=== PATIENT | female | born 1945 | race Caucasian/White ===

== ENCOUNTER 2016-07-26 13:11 | Outpatient (RCR) | payer MEDICARE, OTHER ==
[~2016-07-26 13:11] MED LIST: ALLEGRA 180MG180 MG PO; ALLEGRA 60MG TA60 MG; ALLEGRA 60MG TA60 MG PO; ALLEGRA60 M1 PO; ANORO IH; ARICEPT10 MG PO; ASPI325T6 PO; ASPIRIN 81M81 MG/TA2 PO; B COMPLEX #11 TA1 PO; CARDIZEM CD 12120 MG PO; CELEBREX 200MG200 MG PO; CELEBREX200 MG PO; CPAP; FLEXERIL 1010 MG/TAB PO; FLONASE NASAL S16 GM NAS; FLONASE NASAL S16 GM NS; GLUCOSAMINE & C1 CA2; KLOR-CON 1010 MEQ PO; LIPITOR 80MG80 MG PO; MAGNESIUM CHELA27 MG PO; MULTI VITAMINS1 TAB PO; NAPROSYN500 MG PO; NEURONTIN100 MG PO; NEURONTIN100 MG/CAP; NEURONTIN100 MG/CAP PO; NORCO 325 MG-51 TAB PO; NORVASC 5MG5 MG/TAB; NORVASC 5MG5 MG/TAB PO; OSCAL 500 TAB500 MG; PLAVIX 75MG TAB75 MG PO; PREMARIN0.3 MG PO; PRILOSEC 20MG20 MG PO; PROTONIX20 MG PO; SAVELLA25 MG PO; SYNTHROID0.075 MG PO; SYNTHROID0.075 MG/T; SYNTHROID0.075 MG/T PO; TIAZAC120 MG PO; TOPROL XL 25MG25 MG PO; TYLENOL 325MG325 MG PO; ULTRAM 50MG TAB50 MG PO; VENTOLIN0.09 MG IH; VITAMIN B COMPL1 SGL PO; VITAMIN B COMPL1 T16 PO; VITAMIN C500 MG PO; VITAMIN D 400400 IU PO; VITAMIN D1000 IU
== END 2016-08-09 06:46 | disposition still patient (30) ==
LOC: COL.CR 13:11
DX: Z48.812 Encounter for surgical aftercare following surgery on the circulatory system (principal); I25.2 Old myocardial infarction

== ENCOUNTER → 2016-08-29 | Outpatient (REF) ==
[~2016-08-29] MED LIST changes: +BROVANA15 MCG/2 M IH; +PULMICORT0.5 MG/2 M IH
[2016-08-29 10:52] LABS: THYROID STIMULATING HORMONE 2.26 uIU/mL (0.465-4.680)
== END ==
LOC: ZLAB.WCH 10:08
PROVIDERS: Internal Medicine
DX: Z01.89 Encounter for other specified special examinations (principal)

== ENCOUNTER → 2016-09-21 | Outpatient (REF) | LOC: ZLAB.WCH 10:29 | DX: Z01.89 Encounter for other specified special examinations (principal) ==

== ENCOUNTER → 2016-10-06 | Outpatient (REF) | LOC: ZLAB.WCH 15:53 | DX: Z01.89 Encounter for other specified special examinations (principal) ==

== ENCOUNTER → 2016-11-02 | Outpatient (REF) ==
[2016-11-02 20:16] LABS: TOTAL IRON BINDING CAPACITY 406 ug/dL (265-497)
[2016-11-02 20:38] LABS: FERRITIN 25 ng/mL (11-264)
== END ==
LOC: ZLAB.WCH 18:05
PROVIDERS: Internal Medicine
DX: Z01.89 Encounter for other specified special examinations (principal)

== ENCOUNTER → 2016-11-15 | Outpatient (CLI) | payer MEDICARE, OTHER | LOC: MC.RAD 11:00 | DX: Z12.31 Encounter for screening mammogram for malignant neoplasm of breast (principal) ==

== ENCOUNTER 2016-11-23 06:31 | Day surgery (SDC) | payer MEDICARE, OTHER ==
[~2016-11-23] VITALS: Ht 157.5 cm; Wt 88.9 kg
[2016-11-23] VITALS (680 sets, daily range): BP systolic 98–179; BP diastolic 55–106; PULSE 50–84; TEMP 97.2–98; O2SAT 85–100
[~2016-11-23 06:31] MED LIST changes: -BROVANA15 MCG/2 M IH; -PULMICORT0.5 MG/2 M IH
[2016-11-23 07:12] LABS: HEMATOCRIT 38.7 % (37.0-47.0); HEMOGLOBIN 12.6 g/dl (12.5-16.0); MEAN CELL VOLUME 92 fl (80.0-100.0); MEAN CORPUSCULAR HEMOGLOBIN 30 pg (27.0-31.0); MEAN CORPUSCULAR HGB CONC 33 g/dl (33.0-37.0); MEAN PLATELET VOLUME 9.9 fl (7.4-10.4); PLATELET COUNT 215 K/mm3 (130-400); RED BLOOD COUNT 4.21 M/mm3 (4.10-5.30); REDCELL DISTRIBUTION WIDTH-CV 14.1 % (11.5-14.5); WHITE BLOOD COUNT 6.8 K/mm3 (4.8-10.8)
[2016-11-23 07:17] LABS: INR 1.1 (0.8-3.0); PROTHROMBIN TIME 11.7 SECONDS (9.7-12.8)
[2016-11-23 07:38] LABS: CALCIUM 8.8 mg/dL (8.4-10.2); CREATININE, serum 0.94 mg/dL (0.52-1.25); POTASSIUM 4.4 mmol/L (3.4-5.0)
[2016-11-23] MEDS ORDERED: BROVANA15 MCG/2 M IH (08:21)
[2016-11-23] MEDS ORDERED: PULMICORT0.5 MG/2 M IH (08:22)
[2016-11-23 19:55] LABS: BASO % 0.4 % (0.0-2.0); EOS # 0.1 (0.0-0.7); EOS % 0.9 % (0-4.0); GRAN # 8.5 (1.4-6.5); GRAN % 86.2 % (42.2-75.2); HEMATOCRIT 40.5 % (37.0-47.0); HEMOGLOBIN 13.5 g/dl (12.5-16.0); LYMPH # 0.8 (1.2-3.4); LYMPH % 7.9 % (20.0-51.0); MEAN CELL VOLUME 90 fl (80.0-100.0); MEAN CORPUSCULAR HEMOGLOBIN 30 pg (27.0-31.0); MEAN CORPUSCULAR HGB CONC 33 g/dl (33.0-37.0); MEAN PLATELET VOLUME 9.9 fl (7.4-10.4); MONO # 0.4 (0.1-0.6); MONO % 4.3 % (1.7-9.3); PLATELET COUNT 197 K/mm3 (130-400); RED BLOOD COUNT 4.49 M/mm3 (4.10-5.30); REDCELL DISTRIBUTION WIDTH-CV 13.9 % (11.5-14.5); WHITE BLOOD COUNT 9.8 K/mm3 (4.8-10.8)
[2016-11-23 20:05] LABS: ADJUSTED CALCIUM 8.8 mg/dL (8.4-10.2); BILIRUBIN,TOTAL 0.9 mg/dL (0.0-1.0); CALCIUM 8.8 mg/dL (8.4-10.2); CREATININE, serum 0.8 mg/dL (0.52-1.25); TOTAL PROTEIN 6.9 gm/dL (6.4-8.2)
[2016-11-24] VITALS (394 sets, daily range): BP systolic 106–112; BP diastolic 68–84; PULSE 56–64; TEMP 97.7–98; O2SAT 85–98
[2016-11-24 06:00] LABS: HEMOGLOBIN 12.9 g/dl (12.5-16.0); MEAN CELL VOLUME 91 fl (80.0-100.0); MEAN CORPUSCULAR HEMOGLOBIN 30 pg (27.0-31.0); MEAN CORPUSCULAR HGB CONC 33 g/dl (33.0-37.0); PLATELET COUNT 199 K/mm3 (130-400); RED BLOOD COUNT 4.29 M/mm3 (4.10-5.30); REDCELL DISTRIBUTION WIDTH-CV 13.8 % (11.5-14.5)
[2016-11-24 06:12] LABS: CALCIUM 8.8 mg/dL (8.4-10.2); CREATININE, serum 0.85 mg/dL (0.52-1.25); POTASSIUM 3.9 mmol/L (3.4-5.0)
== END 2016-11-24 12:51 | disposition home or self-care (01) ==
LOC: COL.CAR 06:31 → IMCU 10:05 → COL.CAR 11-24 12:51
PROVIDERS: Internal Medicine Cardiovascular Disease; Internal Medicine Gastroenterology
DX: I25.110 Atherosclerotic heart disease of native coronary artery with unstable angina pectoris (principal); R11.2 Nausea with vomiting, unspecified; I95.9 Hypotension, unspecified; R00.1 Bradycardia, unspecified; I25.2 Old myocardial infarction; K21.9 Gastro-esophageal reflux disease without esophagitis; G30.9 Alzheimer's disease, unspecified; F02.80 Dementia in other diseases classified elsewhere, unspecified severity, without behavioral disturbance, psychotic disturbance, mood disturbance, and anxiety; E78.5 Hyperlipidemia, unspecified; M19.90 Unspecified osteoarthritis, unspecified site; I10 Essential (primary) hypertension; E03.9 Hypothyroidism, unspecified; J45.909 Unspecified asthma, uncomplicated; F32.9 Major depressive disorder, single episode, unspecified; J44.9 Chronic obstructive pulmonary disease, unspecified; G47.33 Obstructive sleep apnea (adult) (pediatric); E66.9 Obesity, unspecified; Z86.73 Personal history of transient ischemic attack (TIA), and cerebral infarction without residual deficits; Z90.710 Acquired absence of both cervix and uterus; Z90.49 Acquired absence of other specified parts of digestive tract; Z87.891 Personal history of nicotine dependence; Z79.1 Long term (current) use of non-steroidal anti-inflammatories (NSAID); Z68.39 Body mass index [BMI] 39.0-39.9, adult
CPT/HCPCS: OP; C1725; C1760; C1769; C1887; C9600; J0461; J1265; J2250; J2405; J2765; J3010

== ENCOUNTER 2017-01-19 11:55 | Outpatient (RCR) | payer MEDICARE, OTHER ==
[~2017-01-19 11:55] MED LIST changes: +BROVANA15 MCG/2 M IH; +PULMICORT0.5 MG/2 M IH
== END 2017-01-24 11:35 | disposition home or self-care (01) ==
LOC: COL.CR 11:55
DX: Z48.812 Encounter for surgical aftercare following surgery on the circulatory system (principal); Z95.5 Presence of coronary angioplasty implant and graft

== ENCOUNTER → 2017-04-20 | Outpatient (REF) ==
[2017-04-20 09:51] LABS: THYROID STIMULATING HORMONE 1.45 uIU/mL (0.465-4.680)
== END ==
LOC: ZLAB.WCH 08:53
PROVIDERS: Internal Medicine
DX: Z01.89 Encounter for other specified special examinations (principal)

== ENCOUNTER → 2017-12-10 | Outpatient (CLI) | payer MEDICARE, OTHER | LOC: MC.RAD 11:32 | DX: Z12.31 Encounter for screening mammogram for malignant neoplasm of breast (principal) ==

== ENCOUNTER 2018-02-28 08:34 | Day surgery (SDC) | payer MEDICARE, OTHER ==
[~2018-02-28] VITALS: Ht 157.6 cm; Wt 98.2 kg
[2018-02-28] MEDS ORDERED: INCRUSE EL62.5 MCG/A IH (09:01)
[2018-02-28] MEDS ORDERED: SINGULAIR 110 MG/TAB PO (09:01)
[2018-02-28] MEDS ORDERED: BROVANA15 MCG/2 M IH (09:02)
[2018-02-28] MEDS ORDERED: FERROUS SULFAT160 M1 PO (09:03)
[2018-02-28 09:14] VITALS: BP 135/70; PULSE 55; TEMP 97.8
[2018-02-28] MEDS ORDERED: CEPHALEXIN500 M1 PO (10:22)
[2018-02-28 11:15] VITALS: BP 150/86; PULSE 85
== END 2018-02-28 11:15 | disposition home or self-care (01) ==
LOC: COL.CAR 08:34
DX: R55 Syncope and collapse (principal); I25.10 Atherosclerotic heart disease of native coronary artery without angina pectoris; I25.2 Old myocardial infarction; I47.1 Supraventricular tachycardia; G47.33 Obstructive sleep apnea (adult) (pediatric); M79.7 Fibromyalgia; E66.9 Obesity, unspecified; J44.9 Chronic obstructive pulmonary disease, unspecified; I10 Essential (primary) hypertension; M19.90 Unspecified osteoarthritis, unspecified site; Z90.710 Acquired absence of both cervix and uterus; Z79.82 Long term (current) use of aspirin; Z79.02 Long term (current) use of antithrombotics/antiplatelets; Z86.73 Personal history of transient ischemic attack (TIA), and cerebral infarction without residual deficits; Z87.891 Personal history of nicotine dependence

== ENCOUNTER → 2018-04-16 | Outpatient (REF) ==
[~2018-04-16] MED LIST changes: +ALBUTEROL0.83 MG/ML IH; +CARDIZEM CD 18180 MG PO; +CEPHALEXIN500 M1 PO; +FERROUSAL325 MG PO; +INCRUSE EL62.5 MCG/A IH; -OSCAL 500 TAB500 MG; +OSCAL 500 TAB500 MG PO; +PROBIOTIC FORMU1 CAP PO; +SINGULAIR 110 MG/TAB PO
[2018-04-16 10:12] LABS: THYROID STIMULATING HORMONE 1.21 uIU/mL (0.465-4.680)
== END ==
LOC: ZLAB.WCH 09:09
PROVIDERS: Internal Medicine
DX: Z01.89 Encounter for other specified special examinations (principal)

== ENCOUNTER → 2018-09-26 | Outpatient (REF) ==
[2018-09-26 17:35] LABS: THYROID STIMULATING HORMONE 0.803 uIU/mL (0.465-4.680)
== END ==
LOC: ZLAB.WCH 16:52
PROVIDERS: Student in an Organized Health Care Education/Training Program
DX: Z01.89 Encounter for other specified special examinations (principal)

== ENCOUNTER → 2018-12-13 | Outpatient (CLI) | payer MEDICARE, OTHER | LOC: MC.RAD 11:40 | DX: Z12.31 Encounter for screening mammogram for malignant neoplasm of breast (principal); N64.89 Other specified disorders of breast; Z95.0 Presence of cardiac pacemaker ==

== ENCOUNTER → 2018-12-17 | Outpatient (CLI) | payer MEDICARE, OTHER | LOC: MC.RAD 09:55 | DX: N63.11 Unspecified lump in the right breast, upper outer quadrant (principal) ==

== ENCOUNTER 2019-01-21 06:48 | Day surgery (SDC) | payer MEDICARE, OTHER ==
[~2019-01-21] VITALS: Ht 157.5 cm; Wt 93.6 kg
[2019-01-21] VITALS (10 sets, daily range): BP systolic 124–151; BP diastolic 62–88; PULSE 59–73; TEMP 97.6–98
--- NOTE | 2019-01-21 09:00 | NUR ---
Complains of dry mouth. May have ice chips per radiology and anesthesia until 1100.
--- NOTE | 2019-01-21 10:00 | NUR ---
Patient resting on cart and is talking with friends. Contact isolation maintained.
[2019-01-21] MEDS ORDERED: PULMICORT0.25 MG/2 IH (10:07)
[2019-01-21] MEDS ORDERED: CELEBREX 1100 MG/CAP PO (10:09)
[2019-01-21] MEDS ORDERED: ALLEGRA 60MG TA60 MG PO (10:14)
[2019-01-21] MEDS ORDERED: GLUCOSAMINE & C1 TAB PO (10:27)
[2019-01-21] MEDS ORDERED: VITAMINC1000TA PO (10:28)
[2019-01-21] MEDS ORDERED: VITAMIN D 400400 IU PO (10:28)
--- NOTE | 2019-01-21 11:08 | NUR ---
Initial visit; Patient thanked Residential Remodeling Subcontractor for offering spiritual care especially prayer and encouragement.
--- NOTE | 2019-01-21 11:13 | NUR ---
Returns to radiology per wheelchair.
--- NOTE | 2019-01-21 12:40 | NUR ---
Patient returns to room 5 per cart from radiology and assisted up to the bathroom. Reports feeling nauseated at times and feeling bowel urgency. IV fluids of LR infusing and IV Pepcid 20mg IV given.
--- NOTE | 2019-01-21 13:30 | NUR ---
Again assisted up to the bathroom and voids and has loose stool. States that she is feeling slightly anxious about surgery.
--- NOTE | 2019-01-21 13:36 | NUR ---
Spencer Morales RATING OFFICER notified re: pt feeling anxious about surgery and Valium 5mg po given with sip of water. Spouse in room.
--- NOTE | 2019-01-21 19:00 | NUR ---
Report given to Bulmaro Redmond LPN. Patient is in bed. She continues to be on the oxymask at 6-10 liters. Patient is drowsy. She is able to answer a few questions appropriatly but than falls back to sleep and is hard to wake up again. She denies pain. She needs a lot of prompting to wake up and answer questions. Denies nausea. Dressing to rigt breast is C/D/I. Patient arrived to the floor at 1840. They brought up the Bi-Pap. No other changes at this time. Call light within reach.
[2019-01-21 19:12] LABS: ARTERIAL BLD GAS O2 SATURATION 91.5 % (92-100); ARTERIAL BLD GAS TCO2 CT 26.5; ARTERIAL BLOOD GAS BASE EXCESS -0.7 (-2-2); ARTERIAL BLOOD GAS HCO3 25.1 meq/L (22-26); ARTERIAL BLOOD GAS PCO2 45.4 mmHg (35-45); ARTERIAL BLOOD GAS PO2 66.7 mmHg (80-100); ARTERIAL BLOOD GAS pH 7.36 (7.35-7.45)
[2019-01-22 04:00] VITALS: BP 106/64; PULSE 82; TEMP 97.6
--- NOTE | 2019-01-22 05:43 | NUR ---
Early in the shift patient was very drowsy, rousable with some effort.Patient was on 6L O2 via oxymask and maintaining SpO2 at or around 94%. Patient slept until approximately 0000, when she woke she was far more alert and oriented, able to maintain SpO2 at or around 96% on 5L via NC. Patient has eaten jello and drank water successfully. Administered PRN tylenol for a headache per patient request. Patient has voided twice, urine is blue/green. Patient denies further needs, call light within reach.
[2019-01-22 08:36] VITALS: BP 148/71; PULSE 80; TEMP 98.3
--- NOTE | 2019-01-22 09:00 | NUR ---
Patient alert and oriented, answers questions appropriately. See assessment. Right breast with incisions well approximated, no redness or drainage noted. New gauze applied to incision sites. No c/o at this time.
--- NOTE | 2019-01-22 10:15 | NUR ---
MADI met with the patient to discuss disharge plan. The patient had a lumpectomy and lymph node sampling done. She states she had to stay overnight, due to her oxygen sats dropping. The patient lives in [place] with her , Brando. She reports independence with ADLs and has a cane, walker, walk-in shower, and nocturnal oxygen and a CPAP from [employer]. The patient's PCP is Dr. Estuardo Kim and she receives her medications through the mail from [facility] and the [facility]. She reports no difficulties obtaining her meds. The patient does not have advanced directives in EMR, but she states that she does have them completed and at home. She states her is her DPOA-HC. The patient plans to return home with her upon discharge. No additional needs at this time.
--- NOTE | 2019-01-22 10:32 | NUR ---
Follow-up visit; Patient thanked Revenue Manager for looking in on her and offerimg encouragement and God's blessings.
--- NOTE | 2019-01-22 11:10 | NUR ---
Discharge instructions reviewed with patient, verbalized understanding. Discharged via wheelchair to auto/home with family at 1110
== END 2019-01-22 11:10 | disposition home or self-care (01) ==
LOC: SDCO 06:48 → SURG 19:18 → SDCO 01-22 11:10
PROVIDERS: Surgery
DX: C50.411 Malignant neoplasm of upper-outer quadrant of right female breast (principal); Z79.899 Other long term (current) drug therapy; J44.9 Chronic obstructive pulmonary disease, unspecified; I25.10 Atherosclerotic heart disease of native coronary artery without angina pectoris; I10 Essential (primary) hypertension; Z86.73 Personal history of transient ischemic attack (TIA), and cerebral infarction without residual deficits; I49.5 Sick sinus syndrome; G30.9 Alzheimer's disease, unspecified; F02.80 Dementia in other diseases classified elsewhere, unspecified severity, without behavioral disturbance, psychotic disturbance, mood disturbance, and anxiety; M79.7 Fibromyalgia; G25.81 Restless legs syndrome; K21.9 Gastro-esophageal reflux disease without esophagitis; E03.9 Hypothyroidism, unspecified; F32.9 Major depressive disorder, single episode, unspecified; G47.33 Obstructive sleep apnea (adult) (pediatric); E88.81 Metabolic syndrome and other insulin resistance; Z86.14 Personal history of Methicillin resistant Staphylococcus aureus infection; E78.00 Pure hypercholesterolemia, unspecified; Z96.651 Presence of right artificial knee joint; D50.9 Iron deficiency anemia, unspecified; M48.00 Spinal stenosis, site unspecified; G62.9 Polyneuropathy, unspecified; Z95.5 Presence of coronary angioplasty implant and graft; Z79.82 Long term (current) use of aspirin; Z90.49 Acquired absence of other specified parts of digestive tract; Z90.710 Acquired absence of both cervix and uterus; Z88.2 Allergy status to sulfonamides; Z88.5 Allergy status to narcotic agent; Z95.0 Presence of cardiac pacemaker; Z87.891 Personal history of nicotine dependence
CPT/HCPCS: OP; A9541; J2250; J2405; J2550; J2704; J3010; J7120; Q9968

== ENCOUNTER → 2019-07-11 | Outpatient (CLI) | payer MEDICARE, OTHER ==
[~2019-07-11] MED LIST changes: +CELEBREX 1100 MG/CAP PO; +GLUCOSAMINE & C1 TAB PO; +PULMICORT0.25 MG/2 IH; +VITAMINC1000TA PO
== END ==
LOC: COL.RAD 12:01
DX: C50.111 Malignant neoplasm of central portion of right female breast (principal)

== ENCOUNTER 2019-08-08 10:00 | Outpatient (RCR) | payer MEDICARE, OTHER | END 2019-10-26 | disposition home or self-care (01) | LOC: MKS.ESL.PT | DX: I89.0 Lymphedema, not elsewhere classified (principal); Z98.890 Other specified postprocedural states; Z92.3 Personal history of irradiation ==

== ENCOUNTER → 2019-12-17 | Outpatient (CLI) | payer MEDICARE, OTHER | LOC: MC.RAD 13:11 | DX: C50.411 Malignant neoplasm of upper-outer quadrant of right female breast (principal); I10 Essential (primary) hypertension; Z98.890 Other specified postprocedural states | CPT/HCPCS: G0279 ==

== ENCOUNTER → 2020-05-24 | Outpatient (CLI) | payer MEDICARE, OTHER | LOC: COL.RAD 05-19 14:00 | DX: M48.061 Spinal stenosis, lumbar region without neurogenic claudication (principal); M43.16 Spondylolisthesis, lumbar region; M41.86 Other forms of scoliosis, lumbar region; M54.16 Radiculopathy, lumbar region; Z98.1 Arthrodesis status | CPT/HCPCS: A9585 ==

== ENCOUNTER → 2020-06-09 | Outpatient (CLI) | payer MEDICARE, OTHER | LOC: MHCPAIN 10:45 | DX: M47.817 Spondylosis without myelopathy or radiculopathy, lumbosacral region (principal); M54.5 Low back pain; M96.1 Postlaminectomy syndrome, not elsewhere classified; M53.3 Sacrococcygeal disorders, not elsewhere classified | CPT/HCPCS: G0463 ==

== ENCOUNTER → 2020-06-14 | Outpatient (CLI) | payer MEDICARE, OTHER | LOC: MHCPAIN 12:36 | DX: M47.818 Spondylosis without myelopathy or radiculopathy, sacral and sacrococcygeal region (principal); M53.3 Sacrococcygeal disorders, not elsewhere classified | CPT/HCPCS: G0260; J1040; Q9967 ==

== ENCOUNTER → 2020-07-21 | Outpatient (CLI) | payer MEDICARE, OTHER | LOC: MHCPAIN 13:17 | DX: M47.817 Spondylosis without myelopathy or radiculopathy, lumbosacral region (principal); M96.1 Postlaminectomy syndrome, not elsewhere classified; M53.3 Sacrococcygeal disorders, not elsewhere classified; G89.29 Other chronic pain | CPT/HCPCS: G0463 ==

== ENCOUNTER → 2020-07-26 | Outpatient (CLI) | payer MEDICARE, OTHER | LOC: MHCPAIN 07-14 13:48 | DX: E11.9 Type 2 diabetes mellitus without complications (principal) ==

== ENCOUNTER → 2020-07-26 | Outpatient (CLI) | payer MEDICARE, OTHER | LOC: MC.RAD 08:39 | DX: N64.59 Other signs and symptoms in breast (principal); M47.817 Spondylosis without myelopathy or radiculopathy, lumbosacral region; M54.5 Low back pain ==

== ENCOUNTER → 2020-08-03 | Outpatient (CLI) | payer MEDICARE, OTHER | LOC: MHCPAIN 13:16 | DX: M47.817 Spondylosis without myelopathy or radiculopathy, lumbosacral region (principal); M53.3 Sacrococcygeal disorders, not elsewhere classified; M54.16 Radiculopathy, lumbar region; G89.29 Other chronic pain; M96.1 Postlaminectomy syndrome, not elsewhere classified | CPT/HCPCS: G0463 ==

== ENCOUNTER 2020-11-03 11:00 | Outpatient (RCR) | payer MEDICARE, OTHER | END 2020-11-09 | disposition still patient (30) | LOC: WSC | DX: M96.1 Postlaminectomy syndrome, not elsewhere classified (principal); M48.061 Spinal stenosis, lumbar region without neurogenic claudication; M43.16 Spondylolisthesis, lumbar region ==

== ENCOUNTER → 2020-11-15 | Outpatient (CLI) | payer MEDICARE, OTHER | LOC: MHCPAIN 12:39 | DX: M47.817 Spondylosis without myelopathy or radiculopathy, lumbosacral region (principal); M54.16 Radiculopathy, lumbar region; M53.3 Sacrococcygeal disorders, not elsewhere classified; G89.29 Other chronic pain | CPT/HCPCS: G0463; J1100; Q9967 ==

== ENCOUNTER → 2020-12-01 | Outpatient (CLI) | payer MEDICARE, OTHER | LOC: MHCPAIN 10:39 | DX: M47.817 Spondylosis without myelopathy or radiculopathy, lumbosacral region (principal); M41.86 Other forms of scoliosis, lumbar region; M96.1 Postlaminectomy syndrome, not elsewhere classified; G89.29 Other chronic pain | CPT/HCPCS: G0463 ==

== ENCOUNTER → 2020-12-16 | Outpatient (CLI) | payer MEDICARE, OTHER | LOC: MHCPAIN 11:13 | DX: M47.817 Spondylosis without myelopathy or radiculopathy, lumbosacral region (principal); M54.16 Radiculopathy, lumbar region | CPT/HCPCS: J1100; Q9967 ==

== ENCOUNTER → 2020-12-17 | Outpatient (CLI) | payer MEDICARE, OTHER | LOC: WSC 10-05 11:30 → MC.RAD 10:30 | DX: Z12.31 Encounter for screening mammogram for malignant neoplasm of breast (principal); Z90.11 Acquired absence of right breast and nipple; C50.111 Malignant neoplasm of central portion of right female breast; Z97.8 Presence of other specified devices ==

== ENCOUNTER → 2021-01-11 | Outpatient (CLI) | payer MEDICARE, OTHER | LOC: MHCPAIN 11:08 | DX: M47.816 Spondylosis without myelopathy or radiculopathy, lumbar region (principal); M41.26 Other idiopathic scoliosis, lumbar region; M96.1 Postlaminectomy syndrome, not elsewhere classified; M54.5 Low back pain | CPT/HCPCS: G0463 ==

== ENCOUNTER → 2021-04-06 | Outpatient (CLI) | payer MEDICARE, OTHER | LOC: MHCPAIN 12:23 | DX: M43.16 Spondylolisthesis, lumbar region (principal); M53.3 Sacrococcygeal disorders, not elsewhere classified; M96.1 Postlaminectomy syndrome, not elsewhere classified; M47.817 Spondylosis without myelopathy or radiculopathy, lumbosacral region | CPT/HCPCS: G0463 ==

== ENCOUNTER → 2021-04-18 | Outpatient (CLI) | payer MEDICARE, OTHER | LOC: MHCPAIN 12:11 | DX: M47.817 Spondylosis without myelopathy or radiculopathy, lumbosacral region (principal); M41.26 Other idiopathic scoliosis, lumbar region; M53.3 Sacrococcygeal disorders, not elsewhere classified | CPT/HCPCS: G0260; J1040; Q9967 ==

== ENCOUNTER → 2021-12-19 | Outpatient (CLI) | payer MEDICARE, OTHER | LOC: MC.RAD 10:50 | DX: Z12.31 Encounter for screening mammogram for malignant neoplasm of breast (principal); Z85.3 Personal history of malignant neoplasm of breast ==

== ENCOUNTER → 2023-08-27 | Outpatient (CLI) | payer MEDICARE, OTHER | LOC: COL.RAD 11:03 | DX: M47.812 Spondylosis without myelopathy or radiculopathy, cervical region (principal); M48.02 Spinal stenosis, cervical region ==

== ENCOUNTER 2023-10-31 10:25 | Day surgery (SDC) | payer MEDICARE, OTHER ==
[2023-10-31] VITALS (15 sets, daily range): BP systolic 133–183; BP diastolic 66–100; PULSE 61–99; TEMP 97.6–98.2
[~2023-10-31] VITALS: Ht 157.5 cm; Wt 82.7 kg
[~2023-10-31 10:25] MED LIST changes: +HYDROmorphone 1 MG/1 ML SYRINGE [PACU/SDC ONLY] IV PRN; +LR 1,000 ML IV SCH; +Ondansetron 4 MG/2 ML VIAL IV PRN; +droPERidol 2.5 MG/ML 2 ML VIAL IV PRN; +hydrALAZINE 20 MG/ML 1 ML VIAL IV PRN
[2023-10-31] MEDS ORDERED: fentaNYL 50 MCG/ML 2 ML VIAL ONE (11:17)
[2023-10-31] MEDS ORDERED: Ondansetron 4 MG/2 ML VIAL ONE (11:18)
[2023-10-31] MEDS ORDERED: dexAMETHasone 10 MG/ML VIAL ONE (11:18)
[2023-10-31] MEDS ORDERED: Lidocaine PF 2% (20 MG/ML) 5 ML VIAL ONE (11:18)
[2023-10-31] MEDS ORDERED: NS 10 ML IV ONE ×2 (11:18→16:22)
[2023-10-31] MEDS ORDERED: NS 1,000 ML IV SCH ×2 (13:15→18:00)
[2023-10-31] MEDS ORDERED: Ondansetron 4 MG/2 ML VIAL IV PRN (13:15)
[2023-10-31] MEDS ORDERED: Morphine 4 MG/ML VIAL IV PRN (13:15)
[2023-10-31] MEDS ORDERED: Topical Skin Adhesive 1 EACH (1 ML) TOP ONE (13:19)
--- NOTE | 2023-10-31 14:40 | NUR ---
The patient arrived back to [place] [facility] from the recovery room at this time. The patient reports feeling nauseated and vomited a small amount of bile colored emesis. The patient's cj wrap dressing to her left upper extremity appears clean dry and intact. The patient has a simple sling and ice in place to her left upper extremity. Post operative vital signs were started at this time. The patient's is at her bedside at this time. The patient agrees to try some saltine crackers and sprite. Call light is within reach. Denies any further needs at this time.
--- NOTE | 2023-10-31 14:55 | NUR ---
The patient appears to be tolerating the sprite well but has only taken a couple bites of the crackers. Vital signs appear stable. Call light remains within reach.
--- NOTE | 2023-10-31 15:25 | NUR ---
The patient continues to appear drowsy and reports feeling nauseated. remains at her bedside.
--- NOTE | 2023-10-31 15:51 | NUR ---
Vital signs were not able to be obtained as the patient was up in the restroom. The patient voided without difficulty. She ambulated to the bathroom with the stand by assistance of two nurses and appeared to tolerate the activity well with a slow steady gait.
--- NOTE | 2023-10-31 16:10 | NUR ---
JARROD Farooq was notified of the patient's constant nausea with bile colored emesis and her drowsy state. He verbalized understanding and an order for a scopalamine patch was obtained at this time.
[2023-10-31] MEDS ORDERED: Scopolamine 1 MG Delivered 3-Day PATCH TD ONE (16:15)
[2023-10-31] MEDS ORDERED: Naloxone 0.4 MG/ML VIAL ONE (16:22)
--- NOTE | 2023-10-31 16:25 | NUR ---
The scopalamine patch was placed behind the patient's left ear at this time. The patient was also given 50 mcg of Narcan administered by JARROD Farooq.
--- NOTE | 2023-10-31 16:40 | NUR ---
JARROD Farooq is back at the patient's bedside to assess her and administered an additional 150 mcg of Narcan for a total dose of 200 mcg. The patient's remains at her bedside at this time. The patient has ambulated to the bathroom again with the assistance of two nurses. The patient's voices concern regarding him being able to get the patient from the car into the house and providing care for her while she is so nauseated and drowsy. Dr. Orr has been called to update him on the patient's condition. He verbalized understanding and wants to be updated to see if the Narcan helped the patient.
--- NOTE | 2023-10-31 17:14 | NUR ---
The patient appears slightly less drowsy and was able to take a couple bites of applesauce without any heaving. Vital signs appear stable to her pre op vitals.
--- NOTE | 2023-10-31 17:35 | NUR ---
1735 The patient had another episode of nausea with a moderate amount of bile colored emesis. She still states that she feels "very tired" and "nauseated". [address] Orr to update him on the patient's progress and an order for the patient to stay overnight was obtained. 1742 Scooter [employer] Dean was called to inform her that the patient needs to stay overnight and obtain a room number so report can be called. 1752 Scooter [employer] Dean called back to let the nurse know the patient can be transferred to room 346.
--- NOTE | 2023-10-31 18:31 | NUR ---
1803 The nurse attempted to call report on the patient. The receiving nurse is unavailable and a callback number was left. 1810 Report was given to LIANA Ferreira who will be assuming the care of the patient. He verbalized understanding and questions were answered at this time. 1825 The patient was transferred to room 346 at this time. The patient was assisted to transfer from the cart to the bed in the room by two nurses. She appeared to tolerate the activity well. The patient's belongings and chart were transferred with her. The patient's is aware of the patient's room number and was provided her patient code and the nurse station number prior to him leaving for the evening. The patient denies any further needs at this time. LIANA Ferreira is present at the patient's bedside to assume care of the patient.
--- NOTE | 2023-10-31 20:18 | NUR ---
Patient assessed at this time, see shift assessment, reports headache and was told by the tech that her blood pressure was 180 systolic, recheck her blood pressure and it was 180/99, called Clyde Perry from ortho at 2028 and received an order for hospitalist consult for medical management, called Clyde Soriano at [address], labs and EKG, patient also had emesis and zofran was given, tylenol given as well for her headache. EKG was done. Patient left the floor for CT at 2117 and came back at 2136, will closely monitor.
[2023-10-31] MEDS ORDERED: hydrALAZINE 20 MG/ML 1 ML VIAL IV PRN (21:15)
[2023-10-31] MEDS ORDERED: Metoprolol Tartrate 5 MG/5 ML VIAL IV SCH (22:15)
[2023-10-31 22:34] LABS: HEMATOCRIT 41.1 % (37.0-47.0); HEMOGLOBIN 14.3 g/dl (12.5-16.0); MEAN CELL VOLUME 93 fl (80.0-100.0); MEAN CORPUSCULAR HEMOGLOBIN 32 pg (27-31); MEAN CORPUSCULAR HGB CONC 35 g/dl (33.0-37.0); MEAN PLATELET VOLUME 10.1 fl (7.4-10.4); PLATELET COUNT 160 K/mm3 (130-400); RED BLOOD COUNT 4.44 M/mm3 (4.10-5.30); REDCELL DISTRIBUTION WIDTH-CV 13.1 % (11.5-14.5)
[2023-10-31 22:46] LABS: CALCIUM 9.9 mg/dL (8.4-10.2); CREATININE, serum 0.98 mg/dL (0.57-1.11); POTASSIUM 3.8 mEq/L (3.5-4.5)
[2023-10-31 22:51] LABS: BAND 2 % (0-10); LYMPHOCYTE 8 % (20.0-51.0); NEUTROPHILS 89 % (42.0-75.2); PLATELET ESTIMATE NORMAL (NORMAL)
[2023-10-31 23:44] LABS: TROPONIN-I 0.036 ng/mL (0.00-0.033)
[2023-11-01] VITALS (7 sets, daily range): BP systolic 136–175; BP diastolic 77–85; PULSE 71–78; TEMP 97.7–98
[2023-11-01] MEDS ORDERED: Donepezil 5 MG TAB PO SCH (00:02)
[2023-11-01] MEDS ORDERED: Clopidogrel 75 MG TAB PO SCH (00:06)
[2023-11-01] MEDS ORDERED: Albuterol 0.083% Neb Soln 2.5 MG/3 ML UD IH PRN (00:15)
[2023-11-01] MEDS ORDERED: Acetaminophen 325 MG TAB PO PRN (00:15)
--- NOTE | 2023-11-01 02:06 | NUR ---
Patient's blood pressure is 150's systolic, called Christie the SALES PROMOTER and made her aware as well about the crical troponin result.
--- NOTE | 2023-11-01 05:41 | NUR ---
Called Christie,the SENIOR NET C DEVELOPER and made her aware for patient's critical result of 0.041, no new orders received.
[2023-11-01] MEDS ORDERED: Arformoterol 15 MCG **** subs to Formoterol 20 MCG IH SCH (07:00)
[2023-11-01] MEDS ORDERED: Formoterol Neb Soln 20 MCG/2 ML UD IH SCH (07:00)
[2023-11-01] MEDS ORDERED: Lisinopril 5 MG TAB PO SCH (09:00)
[2023-11-01] MEDS ORDERED: Umeclidinium 62.5 MCG **** subs to Tiotropium 5 mcg IH SCH (09:00)
[2023-11-01] MEDS ORDERED: Ascorbic Acid 500 MG TAB PO SCH (09:00)
[2023-11-01] MEDS ORDERED: Gabapentin 100 MG CAP PO SCH (09:00)
[2023-11-01] MEDS ORDERED: Tiotropium 2.5 MCG Respimat MDI IH SCH (09:00)
[2023-11-01] MEDS ORDERED: Fluticasone Nasal 50 MCG/Spray 16 GM BOTTLE NS SCH (09:00)
[2023-11-01] MEDS ORDERED: Montelukast 10 MG TAB PO SCH (09:00)
[2023-11-01] MEDS ORDERED: Calcium Carbonate 500 MG TAB PO SCH (09:00)
--- NOTE | 2023-11-01 09:15 | NUR ---
PT LAYING IN BED, ALERT AND ORIENTEDX4. PT RATES HEADACHE 7/10 AND IS HAVING NAUSEA. GAVE ZOFRAN. PT IV IN HAND CAME OUT. RESTARTED 20 GUAGE IV IN THE RIGHT AC. THERE IS SOME EDEMA IN THE RIGHT HAND THAT PT STATES JUST SHOWED UP THIS MORNING. ASSESSED AND GAVE MORNING MEDS. CALL LIGHT WITHIN REACH.
--- NOTE | 2023-11-01 13:02 | NUR ---
vegetable harvest worker met with pt to discuss discharge planning. She reports to live in [place] with her , Brando [phone]. She states she sees Dr. Kim and obtains medications from [facility] with no difficulties. Pt reports to be independent with ADLs and uses a cane, CPAP, and rolator for DME. She states she was going to ask Dr. Orr about Home Health as she is worried about how to take care of herself, and she takes care of her when SW inquired about if he could assist. Pt reports her has had HH before, but cannot remember who it was with. SW said she will inquire about if PT/OT could eval her and see if she needs HH services. MADI spoke with LIANA Max who will have Dr. Orr order PT/OT. PT/OT Pending Discharge Plan: home, tbd
[2023-11-01] MEDS ORDERED: PRINIVIL10 MG PO (14:13)
--- NOTE | 2023-11-01 15:42 | NUR ---
horticultural worker receieved a call from OT Jane stating that they met with pt. They were hesitant to offer the need for home health, as pt functions well, but is unsteady. Jane reports pt has a cleaning service/private duty person who could come in and provide additional help. MADI spoke with MELA Randall who was willing to write HH orders. MADI spoke with pt who states Dr. Orr would not write the order for HH. She states she feels comfortable going home and having her private duty/cleaning person assist her. Pt states she still goes out into the community and goes out to dinner. SW informed her this would impair her ability to qualify for HH. MADI advised pt could discharge home, then follow up with her PCP if she is experiencing issues at home. Pt verbalized understanding. MADI updated MELA Randall of the above information. He was in agreement with this. Discharge Plan: home
--- NOTE | 2023-11-01 16:53 | NUR ---
PT HAD DISCHARGE ORDERS. TOOK OUT PT IV. WENT OVER DISCHARGE PAPERWORK WITH PT. THIS NURSE ESCORTED PT OUT TO CAR WITH .
[2023-11-01] MEDS ORDERED: Ferrous Sulfate 325 MG TAB PO SCH (21:00)
[2023-11-02] MEDS ORDERED: Lisinopril 10 MG TAB PO SCH (09:00)
== END 2023-11-01 16:00 | disposition home or self-care (01) ==
LOC: SDCO 10:25 → SURG 17:40 → SDCO 11-01 16:00
PROVIDERS: Nurse Practitioner Family
DX: G56.22 Lesion of ulnar nerve, left upper limb (principal); G56.03 Carpal tunnel syndrome, bilateral upper limbs; I16.0 Hypertensive urgency; I13.0 Hypertensive heart and chronic kidney disease with heart failure and stage 1 through stage 4 chronic kidney disease, or unspecified chronic kidney disease; N18.9 Chronic kidney disease, unspecified; I50.9 Heart failure, unspecified; I21.A1 Myocardial infarction type 2; I25.10 Atherosclerotic heart disease of native coronary artery without angina pectoris; E11.9 Type 2 diabetes mellitus without complications; Z86.73 Personal history of transient ischemic attack (TIA), and cerebral infarction without residual deficits; E78.5 Hyperlipidemia, unspecified; J44.9 Chronic obstructive pulmonary disease, unspecified; R41.89 Other symptoms and signs involving cognitive functions and awareness; E03.9 Hypothyroidism, unspecified; C50.911 Malignant neoplasm of unspecified site of right female breast; M79.7 Fibromyalgia; I08.1 Rheumatic disorders of both mitral and tricuspid valves; Z79.82 Long term (current) use of aspirin; Z79.02 Long term (current) use of antithrombotics/antiplatelets; Z79.899 Other long term (current) drug therapy; Z95.0 Presence of cardiac pacemaker; Z95.5 Presence of coronary angioplasty implant and graft; Z79.890 Hormone replacement therapy; Z86.14 Personal history of Methicillin resistant Staphylococcus aureus infection; Z92.3 Personal history of irradiation; Z86.74 Personal history of sudden cardiac arrest; Z79.811 Long term (current) use of aromatase inhibitors
CPT/HCPCS: OP; A9270; J0360; J0665; J0690; J0780; J1100; J1170; J1790; J2310; J2405; J2704; J3010; J7030; J7120